=== PATIENT | female | born 1995 | race Caucasian/White ===

== ENCOUNTER 2019-11-22 14:59 | Day surgery (SDC) | payer OTHER ==
[2019-11-22] MEDS ORDERED: hydrALAZINE 20 MG/ML VIAL SLOW IVP PRN (16:46)
--- NOTE | 2019-11-22 16:49 | PDOC.FPROB ---
FMR OB H&P: HPI - History of Present Illness Chief Complaint: decreased movement Indentification: 24 yo at 35.2 wga History of Present Illness: Patient reports she slept in late today, woke up, and wasn't feeling her baby move. She drank water, ate something, and tried pushing her stomach; but nothing seemed to get her baby moving. Denies VB, VD, LOF. She has had contractions on the monitor, but she does not feel them at all. Denies pain. Dr. Rubi checked her in clinic this past Sunday; her cervix was closed. Otherwise, she has a current yeast infection which she is treating w/ vaginal suppository and has 1 pill left. Primary Care Physician: Elicia FMR OB H&P: Current - Care : 2 Para: 0010 Gestational age: 35.2 Due date: 12/25/2019 Total weight gain: 50 lbs Course/Complications: Prepregnancy weight: 100 lbs, underweight. Anemia of , taking iron. Taking vitamin. - OB Labs Additional labs: No records available. FMR OB H&P: History - Past Medical History PMH: MDD Panic disorder History of eating disorder and being underweight "Hyperactive" thyroid: not taking medications, having intermittent laboratory monitoring. 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 Current yeast infection. - Surgical History Sx History: none - Social History Social History: Denies smoking, alcohol, drugs. - Family History Family History: not assessed. FMR OB H&P: Medications - Current Home Medications: Medication Instructions Recorded Confirmed Type Fluconazole 1 tablet PO DAILY 11/22/19 11/22/19 History Iron 325 mg PO DAILY 11/22/19 11/22/19 History Comb No.42/Folic Acid 1 tablet PO DAILY 11/22/19 11/22/19 History [Prena1 Chewable Tablet] Sertraline HCl [Zoloft] 50 mg PO DAILY 11/22/19 11/22/19 History Allergies/Adverse Reactions: Allergies Allergy/AdvReac Type Severity Reaction Status Date / Time No Known Allergies Allergy Unverified 11/22/19 15:47 FMR OB H&P: ROS - Review of Systems General: denies: fever/chills, fatigue Eyes: reports: others (wears glasses) Cardiovascular: denies: chest pain, edema Respiratory: denies: cough, shortness of breath Gastrointestinal: denies: abdominal pain, cramping, nausea, vomiting Genitourinary (Female): denies: dysuria, vaginal discharge, vaginal pain, vaginal bleeding, contractions Musculoskeletal: denies: pain, redness, swelling Neurologic: denies: weakness, headache Integumentary: denies: itching, rash Hematologic/Lymphatic: denies: prolonged or excessive bleeding Psychological: reports: depression, anxiety FMR OB H&P: Vital Signs - Maternal Vital signs: BP 113/77 HR 82 - Heart Tones Baseline: 140 Variability: moderate Acceleration: present Deceleration: absent [place] contractions every: uterine irritability FMR OB H&P: Physical Exam - Physical Exam General: NAD, awake, alert and oriented HEENT: normocephalic and atraumatic, conjunctiva clear, no scleral icterus, grossly normal hearing, normal nasal mucosa Neck: trachea midline Heart: RRR, normal S1/S2, no murmurs/rubs/gallops General: CTAB, no respiratory distress Abdomen: soft, gravid, non-tender Musculoskeletal: pulses present Neurological: no focal deficit Skin: no rash Lymphatic: no unusual bruising or bleeding Psychiatric: intact recent and remote memory, normal mood and affect - Pelvic Exam SVE: deferred Estimated Weight: 6 lbs FMR OB H&P: A/P - Problem List (1) Decreased movement Status: Acute Code(s): O36.8190 - DECREASED MOVEMENTS, UNSP TRIMESTER, UNSP Disposition: discharge from L&D. F/u w/ PCP as scheduled. Discussion: Date/Time: 11/22/19 1647 24 yo at 35.2 wga for: Decreased movement, resolved - NST reactive - patient appears very well hydrated - no other concerns - Return precautions given. labor signs and symptoms education provided. This H&P was discussed with Dr. Humphrey, who agrees with the above documentation and plan. Signature: Alyssa Oliveira MD PGY2 Addendum - Attending - Attending Attestation Date/Time: 11/22/19 9092 I personally evaluated the patient and discussed the management with Dr. Oliveira. I agree with the History, Examination, Assessment and Plan documented above.
== END 2019-11-22 17:10 | disposition home or self-care (01) ==
LOC: L&D/OP 14:59
PROVIDERS: ATTEND Obstetrics & Gynecology
DX: O36.8130 Decreased fetal movements, third trimester, not applicable or unspecified (principal); O99.013 Anemia complicating pregnancy, third trimester; D64.9 Anemia, unspecified; O99.343 Other mental disorders complicating pregnancy, third trimester; F32.9 Major depressive disorder, single episode, unspecified; F41.0 Panic disorder [episodic paroxysmal anxiety]; Z3A.35 35 weeks gestation of pregnancy; Z79.899 Other long term (current) drug therapy
CPT/HCPCS: 99282

== ENCOUNTER 2019-12-07 14:24 | Day surgery (SDC) | payer OTHER ==
[2019-12-07 15:07] VITALS: BMI 27.3
[2019-12-07] MEDS ORDERED: hydrALAZINE 20 MG/ML VIAL SLOW IVP PRN (15:13)
--- NOTE | 2019-12-07 15:55 | PDOC.FPROB ---
FMR OB H&P: HPI - History of Present Illness Chief Complaint: abdominal pain Indentification: History of Present Illness: 24YO @ 37.3 WGA. She came due to abdominal pain that began two days ago. She described it as a sharp pain in her lower pelvis that is around a 2/ 10. She tried Tylenol and baths to help with the pain but neither provided her with relief. She did not notice any bleeding or fluid, but she did report clear vaginal discharge that started last night. States a small amount of clear fluid soaked through her underwear when she stood up but has had no LOF since. Last had intercourse last night as well. There has been no decrease in movements. 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: No reported STIs - Surgical History Sx History: none - Social History Social History: No TAD - Family History Family History: none FMR OB H&P: Medications - Current Home Medications: Medication Instructions Recorded Confirmed Type Fluconazole 1 tablet PO DAILY 11/22/19 12/07/19 History Iron 325 mg PO DAILY 11/22/19 12/07/19 History Comb No.42/Folic Acid 1 tablet PO DAILY 11/22/19 12/07/19 History [Prena1 Chewable Tablet] Sertraline HCl [Zoloft] 50 mg PO DAILY 11/22/19 12/07/19 History Allergies/Adverse Reactions: Allergies Allergy/AdvReac Type Severity Reaction Status Date / Time No Known Allergies Allergy Verified 11/29/19 14:00 FMR OB H&P: ROS - Review of Systems General: denies: fever/chills, night sweats Eyes: denies: eye pain, vision changes Cardiovascular: denies: chest pain, palpitation Respiratory: denies: cough, shortness of breath Gastrointestinal: reports: abdominal pain, vomiting (vomitted yesterday), diarrhea (began a few days ago). denies: nausea, constipation Genitourinary (Female): reports: vaginal discharge (clear), vaginal pain, contractions, vaginal pressure. denies: dysuria, hematuria, polyuria, vaginal bleeding Musculoskeletal: reports: swelling (hand swelling) Neurologic: reports: headache (tension headache) Psychological: reports: anxiety, paranoia FMR OB H&P: Vital Signs - Maternal Vital signs: BP: 132/85 HR: 89 O2 sat 97 on RA Temp 98.9F - Heart Tones Baseline: 140 Variability: moderate Acceleration: present Deceleration: absent Category: category 1 [place] contractions every: 8-20 minutes FMR OB H&P: Physical Exam - Physical Exam General: NAD, awake, alert and oriented HEENT: normocephalic and atraumatic, grossly normal vision, grossly normal hearing Neck: supple, FROM Heart: RRR, normal S1/S2, no murmurs/rubs/gallops General: CTAB, no respiratory distress, no rales/rhonchi, no wheezing Abdomen: gravid, non-tender, bowel sound present Musculoskeletal: normal gait and station, FROM in all four extremities - Pelvic Exam Vulva: normal hair distribution, appropriate cindi stage, no blood Cervix: no masses, no lesions, no blood SVE: 04/21/High Membranes: clear/white fluid noted in posterior fornix on sterile speculum exam FMR OB H&P: Results - Labs Lab results: Laboratory Tests 12/07/19 15:46 Amnio Swab Test No Membranes Rupture FMR OB H&P: A/P - Problem List (1) Abdominal pain Current Visit: Yes Status: Acute Code(s): R10.9 - UNSPECIFIED ABDOMINAL PAIN Qualifiers: Abdominal location: lower abdomen, unspecified Qualified Code(s): R10.30 - Lower abdominal pain, unspecified (2) Term Current Visit: Yes Status: Acute Code(s): Z34.90 - ENCNTR FOR SUPRVSN OF NORMAL , UNSP, UNSP TRIMESTER (3) Anemia affecting Current Visit: Yes Status: Acute Code(s): O99.019 - ANEMIA COMPLICATING , UNSPECIFIED TRIMESTER (4) Schizotypal personality disorder Current Visit: Yes Status: Acute Code(s): F21 - SCHIZOTYPAL DISORDER Disposition: 24YO @ 37.3 WGA presenting for evaluation for abdominal pain w/ possible ROM. Abdominal pain w/ LOF, r/o labor & ROM: - Moderate amount clear/white fluid noted on sterile speculum exam with slight pooling but no active LOF w/ valsalva. Last had intercourse last night. Amnisure swab negative. FHTs reassuring w/ cat 1 strip. No regular contractions since arrival & SVE essentially unchanged from exam ~1 week ago in triage. Term sIUP: - Aware, continue PNVs Anemia in : - Aware, continue iron Schizotypal personality disorder - Aware, continue zoloft Dispo: Will d/c home with labor precautions & instructions to f/u w/ PCP for routine [facility] appt. Discussion: Date/Time: 12/07/19 5916 This H&P was discussed with Dr. Enrique who agrees with the above documentation and plan.
[2019-12-07 16:04] LABS: Amnisure Test No Membranes Rupture (No Rupture)
[2019-12-07 16:05] LABS: Amnisure Internal Control QC ACCEPTABLE (ACCEPTABLE)
== END 2019-12-07 16:34 | disposition home or self-care (01) ==
LOC: L&D/OP 14:24
PROVIDERS: ATTEND Obstetrics & Gynecology
DX: O99.89 Other specified diseases and conditions complicating pregnancy, childbirth and the puerperium (principal); R10.30 Lower abdominal pain, unspecified; N89.8 Other specified noninflammatory disorders of vagina; M79.7 Fibromyalgia; O99.013 Anemia complicating pregnancy, third trimester; D64.9 Anemia, unspecified; O99.343 Other mental disorders complicating pregnancy, third trimester; F21 Schizotypal disorder; Z3A.37 37 weeks gestation of pregnancy; Z79.899 Other long term (current) drug therapy
CPT/HCPCS: 84112; 99283

== ENCOUNTER 2019-12-14 00:47 | Inpatient (IN) | payer OTHER ==
[2019-12-14 01:38] VITALS: BMI 28.3
[2019-12-14] MEDS ORDERED: hydrALAZINE 20 MG/ML VIAL SLOW IVP PRN ×2 (02:06→02:43)
--- NOTE | 2019-12-14 02:09 | PDOC.FPROB ---
FMR OB H&P: HPI - History of Present Illness Chief Complaint: contractions, leg swelling Indentification: 24 yo at 38.3 wga by LMP c/w 1T sono History of Present Illness: Patient here complaining of increased leg swelling bilaterally, R>L and contractions which have been ongoing the past couple of weeks. She notes contractions today have been occurring in runs of 4 about 5-10 minutes apart, then will stop. Contractions are not painful, feels them as stomach tightening. She also has been having discharge/fluid the past couple of weeks, no change from last week when she came in to evaluate if her water was broken. Endorses movement. Primary Care Physician: Elicia FMR OB H&P: Current - Care : 2 Para: 0010 Gestational age: 38.3 wga Due date: 12/25/2019 Dating Criteria: 1T sono c/w LMP Course/Complications: Anemia of Low lying placenta, resolved. - OB Labs Blood type: A RH: positive Antibody Screen: negative HIV: negative RPR: negative HepBsAg: negative Rubella: immune Gonorrhea: negative Chlamydia: negative 1 hour gtt: 137 GBS: negative H&H: 11.4/32.8 FMR OB H&P: History - Past Medical History PMH: Anxiety Depression Schizotypal personality disorder Hashimotos thyroiditis - OB History OB History: 1 SAB in 2019 - STABBER History STABBER History: Denies STIs. - Surgical History Sx History: denies. - Social History Social History: Denies smoking, drinking, drugs. , here with her - Family History Family History: Denies. FMR OB H&P: Medications - Current Home Medications: Medication Instructions Recorded Confirmed Type Fluconazole 1 tablet PO DAILY 11/22/19 12/14/19 History Iron 325 mg PO DAILY 11/22/19 12/14/19 History Comb No.42/Folic Acid 1 tablet PO DAILY 11/22/19 12/14/19 History [Prena1 Chewable Tablet] Sertraline HCl [Zoloft] 50 mg PO DAILY 11/22/19 12/14/19 History Allergies/Adverse Reactions: Allergies Allergy/AdvReac Type Severity Reaction Status Date / Time No Known Allergies Allergy Verified 12/14/19 01:30 FMR OB H&P: ROS - Review of Systems General: denies: fever/chills, fatigue Eyes: denies: vision changes ENT: denies: nasal congestion, rhinorrhea, toothache, sore throat Cardiovascular: reports: edema. denies: chest pain Respiratory: denies: cough, congestion, shortness of breath Gastrointestinal: reports: vomiting (at night, with the stomach tightening.). denies: abdominal pain, cramping, nausea Genitourinary (Female): reports: vaginal discharge, contractions. denies: dysuria, hematuria, vaginal pain, vaginal bleeding Musculoskeletal: denies: pain Neurologic: denies: syncope, weakness Integumentary: denies: itching, rash Hematologic/Lymphatic: denies: prolonged or excessive bleeding Psychological: reports: depression, anxiety FMR OB H&P: Vital Signs - Maternal Vital signs: Vital Signs - First Documented Temp Pulse Resp BP 98.2 F 75 18 155/95 H 12/14/19 01:28 12/14/19 01:28 12/14/19 01:28 12/14/19 01:28 Repeat BP was 138/70 - Heart Tones Baseline: 130 Variability: moderate Acceleration: present Deceleration: absent Category: category 1 [place] contractions every: 2-5 min FMR OB H&P: Physical Exam - Physical Exam General: NAD, awake, alert and oriented HEENT: normocephalic and atraumatic, conjunctiva clear, no scleral icterus, grossly normal vision, grossly normal hearing Neck: trachea midline, no LAD Heart: RRR, normal S1/S2, no murmurs/rubs/gallops Deviation from normal: 2+ pitting edema in R ankle, otherwise 1+ pitting edema to midshin b/l General: CTAB, no respiratory distress Abdomen: soft, gravid, non-tender Neurological: DTR +3 (in lower extremities.), no clonus Skin: no rash Lymphatic: no unusual bruising or bleeding Psychiatric: intact recent and remote memory - Pelvic Exam SVE: 50/-2, midposition, soft per RN Emilie Membranes: intact Estimated Weight: 8 lbs FMR OB H&P: A/P - Problem List (1) Schizotypal personality disorder Current Visit: No Status: Acute Code(s): F21 - SCHIZOTYPAL DISORDER (2) Term Current Visit: No Status: Acute Code(s): Z34.90 - ENCNTR FOR SUPRVSN OF NORMAL , UNSP, UNSP TRIMESTER Disposition: admit to L&D for delivery. Discussion: Date/Time: 12/14/19 0207 24 yo F at 38.3 by 1T sono c/w LMP Elevated BP - 148/77 on last read - will order PIH labs - in setting of favorable cervix, we will admit for expectant mgmt and augment if needed. This H&P was discussed with Dr. Stein, who agrees with the above documentation and plan. Signature: Alyssa Oliveira MD PGY2
--- NOTE | 2019-12-14 02:30 | PDOC.BPN ---
- Brief Progress Note Encounter Date: 12/14/19 Encounter Time: 02:30 O[facility]YN On[facility] note 24 yo at 38 weeks 3 days with posible CTX and right ankle swelling. Patient denies LOF, VB, ankle trauma or fall. Good FM. Recent check was 2cm in clinic. I have seen the patient at bedside. Please see full H&P by DR Oliveira Assessment: Early term, R/O labor; right ankle swelling Plan: 1. labor obs x 2 hrs 2. monitor BPs 3. right LE doppler
--- NOTE | 2019-12-14 02:36 | PDOC.BPN ---
- Brief Progress Note Encounter Date: 12/14/19 Encounter Time: 02:30 BP just now was 148/88. she is 38 weeks and 3 days with CTX and these BPs, we will get PI labs and admit to DR Rubi.
[2019-12-14] MEDS ORDERED: Promethazine HCl 25 MG/ML VIAL IM PRN ×2 (02:43→20:43)
[2019-12-14] MEDS ORDERED: Ibuprofen 800 MG TAB PO PRN (02:43)
[2019-12-14] MEDS ORDERED: Ondansetron PF 4 MG/2 ML Vial IVP PRN ×2 (02:43→20:43)
[2019-12-14] MEDS ORDERED: Lidocaine 1% (PF) 30 ML VIAL SC PRN (02:43)
[2019-12-14] MEDS ORDERED: NS / Oxytocin 40 units/1000ml 1,000 ML IV PRN (02:43)
[2019-12-14] MEDS ORDERED: Docusate 100 MG CAP PO PRN (02:43)
[2019-12-14 04:08] LABS: Mean Corpuscular HGB CONC 34.1 g/dL (32.0-36.0); Mean Corpuscular Hemoglobin 32.5 pg (27.0-31.0); Mean Corpuscular Volume 95.4 fL (78.0-98.0); Mean Platelet Volume 8.6 fL (7.4-10.4); Platelet Count 168 thou/uL (130-400); Red Blood Cell (RBC) Count 3.38 mill/uL (4.20-5.40); White Blood Cell (WBC) Count 12.9 thou/uL (4.8-10.8)
[2019-12-14 04:23] LABS: ALT (SGPT) 38 U/L (8-55); AST (SGOT) 36 U/L (5-34); Albumin 3.4 g/dL (3.5-5.0); Alkaline Phosphatase 94 U/L (40-110); Anion Gap 16 mmol/L (10-20); BUN (Urea Nitrogen) 11 mg/dL (7.0-18.7); Bilirubin, Total 0.2 mg/dL (0.2-1.2); Calc. Creatinine Clearance 131 mL/min (70-130); Calcium 8.4 mg/dL (7.8-10.44); Carbon Dioxide 20 mmol/L (22-29); Chloride 104 mmol/L (98-107); Estimated GFR-MDRD Greater than 90; Globulin 2.6 g/dL (2.4-3.5); Glucose 81 mg/dL (70-105); Sodium 136 mmol/L (136-145)
[2019-12-14 04:49] LABS: Hep B Surf Ag Non-Reactive S/CO (NonReactive)
[2019-12-14 04:59] LABS: Syphilis Antibody Nonreactive (Nonreactive); Syphilis Antibody Index 0.04 S/CO (<1.00 Non-Reactive)
[2019-12-14 06:03] LABS: Creatinine, Urine 28.31 mg/dL (47-110); Protein, Urine Random Quant Less than 10 mg/dL (1-14)
--- NOTE | 2019-12-14 08:57 | ULT ---
PRELIMINARY REPORT/[facility]/AFTER HOURS PROCEDURE EXAM: US Duplex right Lower Extremity Veins. CLINICAL HISTORY: HXl RLE PAIN. TECHNIQUE: Real-time ultrasound scan of the veins of the right lower extremity with color Doppler flow, spectral waveform analysis and compression. COMPARISON: None provided. FINDINGS: DEEP VEINS: The common femoral, femoral, and popliteal veins are echolucent and compressible. These vessels demon strate respiratory variation and augmentation. There is normal color Doppler flow throughout. The vis ualized calf veins are also patent. SUPERFICIAL VEINS: The visualized greater saphenous vein is patent. SOFT TISSUES: No popliteal fossa cyst or other abnormalities. IMPRESSION: No deep venous thrombosis in the right lower extremity. ELECTRONICALLY SIGNED BY: Brian Branch MD Dec 14, 2019 5:45:04 AM CDT This report is intended for review by the ordering physician only, in accordance of law. If you recei ve this report in error, please call [facility] at [phone]. FINAL REPORT VENOUS DUPLEX STUDY OF RIGHT LOWER EXTREMITY: INDICATIONS: Right lower extremity pain and edema. FINDINGS: No evidence of right lower extremity DVT. I am in agreement with the preliminary report. POS: STEPHANIE
[2019-12-14] MEDS: Lactated Ringer's 1,000 ML IV SCH ×3 (10:56→20:40)
[2019-12-14] MEDS: NS w/ Oxytocin 10 units 500 ML IV SCH ×2 (10:56→17:09)
[2019-12-14 12:48] LABS: SARS-CoV-2 MS2 Positive; SARS-CoV-2 N Gene Negative; SARS-CoV-2 S Gene Negative; SARS-CoV-2 by NAA Not Detected (NotDetected); SARS-CoV-2 orf1ab Negative
[2019-12-14] MEDS ORDERED: Fentanyl 4 mcg/Bup 0.1% Cadd 100 ML ONE (19:47)
[2019-12-14] MEDS ORDERED: Fentanyl 100 MCG/2 ML VIAL ONE (20:03)
[2019-12-14] MEDS ORDERED: Lactated Ringer's 500 ML IV PRN (20:43)
[2019-12-14] MEDS ORDERED: EPHEDRINE 25 MG/5 ML SYRINGE SLOW IVP PRN (20:43)
[2019-12-14] MEDS ORDERED: Naloxone HCl 0.4 mg/ml Vial IVP PRN ×2 (20:43)
[2019-12-14] MEDS ORDERED: Acetaminophen 325 MG TAB PO PRN (20:43)
[2019-12-14] MEDS ORDERED: diphenhydrAMINE 50 MG/ML VIAL IVP PRN (20:43)
[2019-12-14] MEDS ORDERED: Fentanyl 4 mcg/Bupivacaine 0.1% Cassette 100 ML EPIDURAL SCH (20:45)
[2019-12-14] MEDS ORDERED: Communication Order-Pharmacy FS SCH (20:45)
[2019-12-15] MEDS ORDERED: Fentanyl 4 mcg/Bup 0.1% Cadd 100 ML ONE (03:26)
[2019-12-15] MEDS: NS / Oxytocin 40 units/1000ml 1,000 ML IV SCH ×2 (06:10→08:07)
[2019-12-15] MEDS ORDERED: Bisacodyl 10 MG SUPP PR PRN (06:33)
[2019-12-15] MEDS ORDERED: Milk Of Magnesia 30 ML UDCUP PO PRN (06:33)
[2019-12-15] MEDS ORDERED: Misoprostol 200 MCG TAB VAG PRN (06:33)
[2019-12-15] MEDS ORDERED: Preparation H Ointment 28 GM TUBE PR PRN (06:33)
[2019-12-15] MEDS ORDERED: Zolpidem Tartrate 5 MG TAB PO PRN (06:33)
[2019-12-15] MEDS ORDERED: diphenhydrAMINE 25 MG CAP PO PRN (06:33)
[2019-12-15] MEDS ORDERED: Ondansetron PF 4 MG/2 ML Vial IVP PRN (06:33)
[2019-12-15] MEDS ORDERED: Benzocaine-Menthol 82.5 ML CAN TOP PRN (06:33)
[2019-12-15] MEDS ORDERED: Lanolin Ointment 7 GM TUBE TOP PRN (06:33)
[2019-12-15] MEDS ORDERED: hydrALAZINE 20 MG/ML VIAL SLOW IVP PRN (06:33)
[2019-12-15] MEDS: Lactated Ringer's 1,000 ML IV SCH (07:13)
[2019-12-15] MEDS: Ibuprofen 800 MG TAB PO SCH ×3 (08:08→21:49)
[2019-12-15] MEDS: Prenatal Vitamin 1 TAB PO SCH (08:08)
[2019-12-15] MEDS: Docusate Calcium (SURFAK) 240 MG CAP PO SCH ×2 (08:08→21:49)
[2019-12-15] MEDS: Ferrous Sulfate 325 MG TAB PO SCH ×2 (08:08→19:13)
[2019-12-15] MEDS ORDERED: Bupivacaine HCl 0.5%/Epinephrine 1:200,000/PF 30 ml Vial ONE (15:06)
[2019-12-15] MEDS ORDERED: Bupivacaine/Epinephrine 0.25% 30 ML VIAL ONE (15:06)
[2019-12-15] MEDS: HYDROcodone/Acetaminophen 5/325 mg Tablet PO PRN (16:19)
[2019-12-16 05:56] LABS: Hemoglobin 8.3 g/dL (12.0-16.0); Mean Corpuscular HGB CONC 33.1 g/dL (32.0-36.0); Mean Corpuscular Hemoglobin 32.8 pg (27.0-31.0); Mean Platelet Volume 7.9 fL (7.4-10.4); Platelet Count 140 thou/uL (130-400); Red Blood Cell (RBC) Count 2.52 mill/uL (4.20-5.40); White Blood Cell (WBC) Count 15.3 thou/uL (4.8-10.8)
[2019-12-16] MEDS: Ibuprofen 800 MG TAB PO SCH ×3 (05:59→21:17)
[2019-12-16] MEDS: Adacel (T-DAP) 0.5 ML SYRINGE IM ONE (07:38)
[2019-12-16] MEDS: Ferrous Sulfate 325 MG TAB PO SCH ×2 (08:54→16:46)
[2019-12-16] MEDS: Prenatal Vitamin 1 TAB PO SCH ×2 (08:55→09:01)
[2019-12-16] MEDS: Docusate Calcium (SURFAK) 240 MG CAP PO SCH ×2 (08:55→21:17)
[2019-12-16] MEDS: HYDROcodone/Acetaminophen 5/325 mg Tablet PO PRN ×4 (08:59→21:14)
[2019-12-16 23:47] VITALS: TEMP 98.2
[2019-12-17] MEDS: HYDROcodone/Acetaminophen 5/325 mg Tablet PO PRN ×2 (01:40→12:38)
[2019-12-17] MEDS ORDERED: Ibuprofen 800 MG TAB ONE (06:00)
[2019-12-17] MEDS ORDERED: Ferrous Sulfate 325 MG TAB ONE (08:25)
[2019-12-17] MEDS ORDERED: Docusate Calcium (SURFAK) 240 MG CAP ONE (08:25)
[2019-12-17] MEDS ORDERED: Prenatal Vitamin 1 TAB ONE (08:25)
[2019-12-17 10:24] VITALS: BP 128/66
[2019-12-17] MEDS: Ferrous Sulfate 325 MG TAB PO SCH (10:27)
[2019-12-17] MEDS: Ibuprofen 800 MG TAB PO SCH (10:27)
[2019-12-17] MEDS: Prenatal Vitamin 1 TAB PO SCH (10:27)
[2019-12-17] MEDS: Docusate Calcium (SURFAK) 240 MG CAP PO SCH (10:27)
[2019-12-17] MEDS: Adacel (T-DAP) 0.5 ML SYRINGE IM ONE (13:23)
== END 2019-12-17 13:30 | disposition home or self-care (01) | DRG 768 ==
LOC: L&D/OP 00:47 → L&D 02:43 → 3SE 12-15 11:27
PROVIDERS: ADMIT Obstetrics & Gynecology; ATTEND Obstetrics & Gynecology
PROC: 10E0XZZ Delivery of Products of Conception, External Approach (ICD-10-PCS; principal; 2019-12-14)
PROC: 0DQR0ZZ Repair Anal Sphincter, Open Approach (ICD-10-PCS; 2019-12-14)
DX: O13.4 Gestational [pregnancy-induced] hypertension without significant proteinuria, complicating childbirth (principal); Z37.0 Single live birth; D62 Acute posthemorrhagic anemia; O76 Abnormality in fetal heart rate and rhythm complicating labor and delivery; O70.20 Third degree perineal laceration during delivery, unspecified; O99.02 Anemia complicating childbirth; O99.344 Other mental disorders complicating childbirth; F32.9 Major depressive disorder, single episode, unspecified; F41.9 Anxiety disorder, unspecified; O99.284 Endocrine, nutritional and metabolic diseases complicating childbirth; E06.3 Autoimmune thyroiditis; Z3A.38 38 weeks gestation of pregnancy; F21 Schizotypal disorder; Z20.828 Contact with and (suspected) exposure to other viral communicable diseases
CPT/HCPCS: 36415; 51702; 80053; 82570; 84156; 85027; 86780; 86850; 86900; 86901; 87340; 87635; 90715; 99285; J0670; J2001; J3010; U0003

== ENCOUNTER 2024-12-29 10:08 | Outpatient (CLI) | payer OTHER ==
[2024-12-29 10:46] LABS: #Basophils 0.04 10x3/uL (0.0-0.2); #Eosinophils 0.22 10x3/uL (0.0-0.7); #Monocytes 0.27 10x3/uL (0.11-0.59); #Neutrophils 3.03 10x3/uL (1.40-6.50); %Basophils 0.8 % (0.0-1.0); %Eosinophils 4.7 % (0.0-10.0); %Lymphocytes 24.2 % (21.0-51.0); %Monocytes 5.7 % (0.0-10.0); %Neutrophils 64.2 % (42.0-75.0); Hematocrit 37.4 % (36.0-47.0); Hemoglobin 12.0 g/dL (12.0-16.0); Mean Corpuscular Hemoglobin 30.0 pg (27.0-31.0); Mean Corpuscular Volume 93.5 fL (78.0-98.0); Platelet Count 198 10x3/uL (130-400); Red Blood Cell (RBC) Count 4.00 mill/uL (4.20-5.40); White Blood Cell (WBC) Count 4.72 10x3/uL (4.8-10.8)
[2024-12-29 10:55] LABS: BHCG - Serum Negative (NEGATIVE); Pregs Control Background? CLEAR/WHITE (CLR/WHITE); Pregs Control Bar Appear? YES (CONTROL BAR)
== END 2024-12-29 10:09 | disposition home or self-care (01) ==
LOC: LABBT 10:08
PROVIDERS: ATTEND Orthopaedic Surgery Hand Surgery
DX: Z01.812 Encounter for preprocedural laboratory examination (principal); M67.432 Ganglion, left wrist
CPT/HCPCS: 84703; 85025